=== PATIENT | female | born 1970 | race Caucasian/White ===

== ENCOUNTER 2020-12-27 05:02 | Observation (INO) | payer BC ==
[~2020-12-27] VITALS: Ht 167.6 cm; Wt 65.0 kg
[2020-12-27] MEDS ORDERED: normal saline 1000ML IV soln IVB ONE (05:10)
[2020-12-27] MEDS ORDERED: TETanus/Pertussis (Acell)/Diphther VAC/PF (Tdap-Adult) 0.5ml syringe IMVAC ONE (05:10)
[2020-12-27 05:44] LABS: EOSINOPHILS # (AUTO) 0.2 X10'3 (0-0.9); EOSINOPHILS % (AUTO) 4.2 % (0-6); HEMOGLOBIN 11.8 g/dl (12.0-16.0); LYMPHOCYTES # (AUTO) 1.4 X10'3 (1.1-4.8); LYMPHOCYTES % (AUTO) 28.5 % (21-51); MEAN CORPUSCULAR HEMOGLOBIN 29.6 PG (27.0-31.0); MEAN CORPUSCULAR HGB CONC 32.9 g/dL (33.0-36.5); MEAN CORPUSCULAR VOLUME 89.9 FL (78-98); MONOCYTES # (AUTO) 0.3 X10'3 (0-0.9); MONOCYTES % (AUTO) 6.2 % (2-12); NEUTROPHILS % (AUTO) 60.1 % (42-75); PLATELET COUNT 304 X10'3 (140-440)
[2020-12-27 05:53] LABS: ALANINE AMINOTRANSFERASE 44 U/L (12-78); ALBUMIN 3.4 G/DL (3.4-5.0); ALBUMIN/GLOBULIN RATIO 0.9 (1.1-1.5); ALKALINE PHOSPHATASE 61 IU/L (46-116); ANION GAP 6 (8-16); ASPARTATE AMINO TRANSFERASE 38 U/L (10-37); BILIRUBIN,TOTAL 0.2 MG/DL (0.1-1.0); BLOOD UREA NITROGEN 27 MG/DL (7-18); BUN/CREATININE RATIO 25.7 (6.6-38.0); CALCIUM 8.6 MG/DL (8.5-10.1); CHLORIDE 106 MMOL/L (99-107); CREATININE 1.05 MG/DL (0.40-0.90); GLUCOSE 121 MG/DL (70-104); SODIUM 141 MMOL/L (135-145); TOTAL CARBON DIOXIDE 28.7 MMOL/L (24-32); eGFR 55 ML/MIN
[2020-12-27] MEDS ORDERED: LIDOcaine 1% W/epiNEPHrine 1:200,000 10ml vial IJ ONE (06:05)
[2020-12-27] MEDS ORDERED: normal saline 1000ml 1,000 ML IV ONE (09:00)
[2020-12-27] MEDS ORDERED: normal saline 500ml IV soln 1,000 ML IV ONE (09:05)
[2020-12-27] MEDS ORDERED: ondansetron/PF 4mg/2ml inj IV PRN (09:35)
[2020-12-27] MEDS ORDERED: mag hydrox/Alum hydrox/simeth 30ml oral suspension PO PRN (09:35)
[2020-12-27] MEDS ORDERED: magnesium hydroxide 30ml (MOM) UD suspension PO PRN (09:35)
[2020-12-27] MEDS ORDERED: morphine 2 MG/ML inj. syringe IV PRN ×2 (09:35)
[2020-12-27] MEDS ORDERED: acetaminophen 325mg tablet PO PRN (09:35)
[2020-12-27] MEDS ORDERED: HYDROcodone/acetaminophen 5mg/325mg tablet PO PRN (09:35)
[2020-12-27] MEDS: normal saline 1000ml 1,000 ML IV SCH ×2 (09:50→20:07)
--- NOTE | 2020-12-27 11:30 | NUR ---
Patient arrived to the unit as a new admission from the ED. Patient is a/ox4, cont b/b and in NAD.
[2020-12-27 11:35] VITALS: BP 112/62
[2020-12-27] MEDS: acetaminophen 325mg tablet PO PRN ×2 (11:52→20:32)
[2020-12-27] MEDS ORDERED: NO HOME MEDS (13:09)
[2020-12-27 15:00] VITALS: BP 116/77
[2020-12-27 18:00] VITALS: BP 96/51
[2020-12-27 22:00] VITALS: BP 97/40
[2020-12-28 02:00] VITALS: BP 100/49
[2020-12-28 05:51] VITALS: BP 109/52
[2020-12-28 05:53] VITALS: BP 109/50
[2020-12-28 05:54] VITALS: BP 113/46
[2020-12-28] MEDS: normal saline 1000ml 1,000 ML IV SCH (05:57)
[2020-12-28 06:00] VITALS: BP 109/56
[2020-12-28 06:15] LABS: BASOPHILS % (AUTO) 0.7 % (0-1); EOSINOPHILS # (AUTO) 0.2 X10'3 (0-0.9); HEMATOCRIT 31.4 % (35.0-45.0); HEMOGLOBIN 10.3 g/dl (12.0-16.0); LYMPHOCYTES # (AUTO) 1.4 X10'3 (1.1-4.8); LYMPHOCYTES % (AUTO) 27.9 % (21-51); MEAN CORPUSCULAR HEMOGLOBIN 29.8 PG (27.0-31.0); MEAN CORPUSCULAR HGB CONC 32.9 g/dL (33.0-36.5); MEAN CORPUSCULAR VOLUME 90.5 FL (78-98); MEAN PLATELET VOLUME 8.1 FL (7.4-10.4); MONOCYTES # (AUTO) 0.3 X10'3 (0-0.9); MONOCYTES % (AUTO) 6.9 % (2-12); NEUTROPHILS # (AUTO) 3.1 X10'3 (1.8-7.7); NEUTROPHILS % (AUTO) 61.5 % (42-75); PLATELET COUNT 279 X10'3 (140-440); RED BLOOD COUNT 3.47 X10'6 (4.20-5.60); RED CELL DISTRIBUTION WIDTH 13.3 % (11.5-14.5)
[2020-12-28 06:30] LABS: ALBUMIN 2.7 G/DL (3.4-5.0); ANION GAP 3 (8-16); BLOOD UREA NITROGEN 18 MG/DL (7-18); BUN/CREATININE RATIO 20.7 (6.6-38.0); CALCIUM 8.1 MG/DL (8.5-10.1); CHLORIDE 111 MMOL/L (99-107); CREATININE 0.87 MG/DL (0.40-0.90); GLUCOSE 109 MG/DL (70-104); SODIUM 141 MMOL/L (135-145); TOTAL CARBON DIOXIDE 26.7 MMOL/L (24-32); eGFR 69 ML/MIN
--- NOTE | 2020-12-28 06:37 | NUR ---
Problems reprioritized. Patient report given, questions answered & plan of care reviewed with ABIGAIL Condon.
--- NOTE | 2020-12-28 06:55 | NUR ---
PAGER ID: [phone] MESSAGE: Eryn [id number], Garry Collins. Potassium 2.5 and mag 1.0. Will replace per protocol. ABIGAIL Condon Addendum: 12/28/20 at 0656 by Roseanna SAINI RN Wrong patient room
[2020-12-28 08:00] VITALS: BP_SYST 117; BP_SYST 121; BP_SYST 123; BP_DIAS 61; BP_DIAS 65; BP_DIAS 68
--- NOTE | 2020-12-28 14:31 | NUR ---
Patient being discharged at this time. She is a/ox4, in NAD, vss, IV removed and discharge paperwork discussed. Mom at bedside to transfer patient home.
--- NOTE | 2020-12-29 13:50 | NUR ---
CASE MANAGEMENT DISCHARGE FOLLOW UP: T/c to pt, spoke to her mother, Coco, left message requesting callback. Addendum: 12/29/20 at 1407 by Joyce Galan RN [id number] Received return call from pt. Reports that she is doing alright; denies dizziness, syncope. Verbalizes understanding of s/sx requiring further evaluation/emergent assistance. No medications ordered, pt on no home medications. Verbalizes compliance with MD discharge instructions. Pt states will call PCP for f/u appt if she feels it is needed, not needed at this time. States no further questions/concerns at this time.
== END 2020-12-28 14:30 | disposition home or self-care (01) ==
LOC: ER 05:03 → ED HOLD 09:34 → PCU 3S 11:30
PROVIDERS: ADMIT Internal Medicine; ATTEND Internal Medicine
DX: T46.5X1A Poisoning by other antihypertensive drugs, accidental (unintentional), initial encounter (principal); R55 Syncope and collapse; S01.01XA Laceration without foreign body of scalp, initial encounter; I95.9 Hypotension, unspecified; R00.1 Bradycardia, unspecified; Z23 Encounter for immunization; W18.39XA Other fall on same level, initial encounter; Y93.89 Activity, other specified; Y92.000 Kitchen of unspecified non-institutional (private) residence as the place of occurrence of the external cause
CPT/HCPCS: 12002; 36415; 70450; 71045; 80048; 80053; 85025; 87081; 90471; 93005; 96360; 96361; 99285; G0378; J7030; J7040; 90715